=== PATIENT | female | born 1985 | race Caucasian/White ===

== ENCOUNTER 2016-06-30 10:30 | Inpatient (IN) | payer OTHER ==
[2016-06-30] MEDS: ELECTROLYTE-148 SOLN 1,000 ML IV SCH (10:45)
--- NOTE | 2016-06-30 11:01 | HP ---
Admitting History and Physical - Admission Chief Complaint: for repeat c section History of Present Illness: 30 yo with a priot cs and late registrant. States her care was in her counrty but never brought records. 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: No: Alzheimer's, CVA, Dementia, Migraine, Multiple Sclerosis, Peripheral Neuropathy, Parkinson's, Seizure, Syncope, TIA, Vertigo, Other Cardiovascular: No: AFIB, Aneurysm, Aortic Insufficiency, Aortic Stenosis, CAD, CHF, Deep Vein Thrombosis, HTN, Hyperlipdemia, LA, Mitral Insufficiency, Mitral Stenosis, Murmur, Pulmonary Hypertension, Other Pulmonary: No: Asthma, Bronchitis, Cancer, COPD, O2 Dependent, Pneumonia, Previously Intubated, Pulmonary Embolus, Pulmonary Fibrosis, Sleep Apnea, Other Gastrointestinal: No: Ascites, Cancer, Constipation, Crohn's Disease, Diverticulitis, Diverticulosis, Esophageal Varices, Gastritis, GERD, GI Bleed, Hemorrhoids, Hiatal Hernia, Inflamatory Bowel Disease, Irritable Bowel Disease, Pancreatitis, Peptic Ulcer Disease, Ulcerative Colitis, Other Hepatobiliary: No: Cirrhosis, Cholelithiasis, Cholecystitis, Choledocholithiasis , Hepatitis A, Hepatitis B, Hepatitis C, Other Renal/: No: Renal Failure, Renal Inusuff, BPH, Cancer, Hematuria, Hemodialysis , Neurogenic Bladder, Renal Calculi, UTI, Other Reproductive: No: Ectopic , Endometriosis, Fibroids, PID, Polycystic Ovary Syndrome, Postmenopausal, Other Heme/Onc: No: Anemia, B12 Deficiency, Bleeding Disorder, Cancer, Current Chemotherapy, Current Radiation Therapy, Hemochromatosis, Hypercoaguable State, Myeloproliferative Synd, Sickle Cell Disease, Sickle Cell Trait, Thrombocytopenia, Other Infectious Disease: No: AIDS, C-Diff, Herpes Zoster, HIV, MRSA, STD's, Tuberculosis, VREF, Other Psych: No: Addictions, Anxiety, Bipolar, Depression, Panic, Psychosis, Schizophrenia, Other Musculoskeletal: No: Bursitis, Chronic low back pain, Hemiparesis, Hemiplegia, Osteoarthritis, Paraplegia, Other Rheumatology: No: Fibromyalgia, Gout, Lupus, Rheumatoid Arthritis, Sarcoidosis, Vasculitis, Other ENT: No: Allergic Rhinitis, Sinusitis, Other Endocrine: No: [place]'s Disease, [place]'s Disease, Diabetes Insipidus, Diabetes Mellitus, Hyperparathyroidism, Hyperthyroidism, Hypothyroidism, Osteopenia, SIADH, Other Dermatology: No: Basal Cell, Cellulitis, Eczema, Melanoma, Psoriasis, Squamous Cell, Other - Past Surgical History Past Surgical History: No: None, AAA Repair, AICD, Amputation, Appendectomy, Arthrosocopy, AV Fistula/Graft, Bariatric Surgery, Breast Biopsy, Bypass, CABG, Carotid Endarterectomy, Cataract Removal, Cholecystectomy, Colectomy, Colonoscopy, Colostomy, Craniotomy, , Cystectomy, Hernia Repair, Hysterectomy, Ileal Conduit, Ileosotomy, Joint Replacement, Kidney Transplant, Laminectomy, Liver Transplant, Mastectomy, Nephrectomy, Oopherectomy, Orchiectomy, Permanent Pacemaker, Prostatectomy, Splenectomy, Stent, Thoracotomy , TURP, Tonsillectomy, Tubal Ligation, Upper Endoscopy, Valve Replacement, Vasectomy, Vein Stripping/Ligation - Advance Directives Advance Directives: No: Living Will, Health Care Proxy, DNR, Organ Donor, Tissue Donor - Alcohol/Substance Use History of Substance Use: denies: None, Cocaine, Heroin, Marijuana, Prescription , Tranquilizers - Social History Usual Living Arrangement: No: Alone, With Spouse, With Parent, With Significant Other, With Child, Assisted Living, Alf, Other Home Medications - Allergies Allergies/Adverse Reactions: Allergies Allergy/AdvReac Type Severity Reaction Status Date / Time No Known Allergies Allergy Verified 05/13/16 17:36 - Home Medications Home Medications: Ambulatory Orders Vit No.130/Iron/FA [ Vitamins] 1 each PO DAILY 05/13/16 Review of Systems - Review of Systems Constitutional: reports: No Symptoms Eyes: reports: No Symptoms HENT: reports: No Symptoms Neck: reports: No Symptoms Cardiovascular: reports: No Symptoms Respiratory: reports: No Symptoms Gastrointestinal: reports: No Symptoms Genitourinary: reports: No Symptoms Breasts: reports: No Symptoms Reported Musculoskeletal: reports: No Symptoms Integumentary: reports: No Symptoms Neurological: reports: No Symptoms Endocrine: reports: No Symptoms Hematology/Lymphatic: reports: No Symptoms Psychiatric: reports: No Symptoms Physical Examination Constitutional: Yes: Well Nourished Eyes: Yes: WNL HENT: Yes: WNL Neck: Yes: WNL Cardiovascular: Yes: WNL Respiratory: Yes: WNL Gastrointestinal: Yes: WNL ...Rectal Exam: Yes: WNL Renal/: Yes: WNL Breast(s): Yes: WNL Musculoskeletal: Yes: WNL Extremities: Yes: WNL Integumentary: Yes: WNL Neurological: Yes: WNL ...Motor Strength: WNL Assessment/Plan as above admit labs consents
[2016-06-30 11:34] VITALS: BMI 34.4
[2016-06-30 11:37] LABS: INR 1.05 (0.82-1.09); PROTHROMBIN TIME (PATIENT) 11.6 SEC (9.98-11.88)
[2016-06-30 11:39] LABS: ACTIVATED PTT 25.8 SECONDS (26.9-34.4)
[2016-06-30] MEDS ORDERED: CITRIC ACID/SODIUM CITRATE 30 ML UNIT-DOSE CUP PO ONE (12:16)
[2016-06-30] MEDS ORDERED: METHYLERGONOVINE MALEATE 0.2 MG/1 ML AMP IM PRN (12:16)
[2016-06-30] MEDS ORDERED: morphine SULFATE/Preservative Free 0.5 MG/ML (1cc Syringe) SPIN ONE (14:02)
[2016-06-30] MEDS: OXYTOCIN 20 UNITS in 0.9% NS 1,000 ML IV SCH ×2 (14:45→21:32)
[2016-06-30] MEDS ORDERED: ONDANSETRON 4 MG/2 ML VIAL IVPB PRN (15:03)
[2016-06-30 15:40] LABS: URINE MARIJUANA THC NEGATIVE ng/ml (CUTOFF=50)
[2016-06-30] MEDS: SIMETHICONE 80 MG TAB.CHEW (FP) PO PRN (23:58)
[2016-06-30] MEDS: IBUPROFEN 600 MG TABLET (FP) PO PRN (23:58)
[2016-06-30] MEDS: ACETAMINOPHEN 325 MG TABLET (FP) PO PRN (23:58)
[2016-07-01] MEDS: ACETAMINOPHEN 325 MG TABLET (FP) PO PRN ×4 (05:03→20:36)
[2016-07-01] MEDS: SIMETHICONE 80 MG TAB.CHEW (FP) PO PRN ×4 (05:03→20:37)
[2016-07-01] MEDS: IBUPROFEN 600 MG TABLET (FP) PO PRN ×4 (05:04→20:37)
--- NOTE | 2016-07-01 06:40 | PN ---
Post Progress Note - Subjective Subjective: no c/o pain, scale 4/10 Post Day: 1 Type of Delivery: Repeat C/S Vital Signs: Vital Signs Temperature 98.6 F 07/01/16 05:15 Pulse Rate 77 07/01/16 05:15 Respiratory Rate 18 07/01/16 05:15 Blood Pressure 103/53 07/01/16 05:15 O2 Sat by Pulse Oximetry (%) 100 06/30/16 15:30 Breast Exam: Yes: Soft, Other (BF ). No: Engorged Uterus: Yes: Fundus Firm, Fundus below umbilicus, Non-tender Incision: Yes: Dressing dry and intact. No: Redness, Oozing Abdomen/GI: Yes: Abdomen soft (bs active ), Tolerating PO (clear liquids ). No : Abdominal Distention, Tender, Passing flatus Lochia: Yes: Rubra Lochia, amount: Moderate Extremities: Yes: Calves non-tender, Edema Perineum: Yes: Intact Activity: Other (pt not oob yet . ) Other Findings, Remarks: Chávez in situ , draining i/o adequate Assessment/Plan stable. ct po care cbc today
[2016-07-01 07:32] LABS: BASOPHIL 0.2 % (0-2.0); EOSINOPHIL 0.5 % (0-4.5); MCHC 33.2 g/dl (32.0-36.0); MEAN CELL VOLUME 87.2 fl (80-96); MEAN PLT VOLUME 9.2 fl (7.5-11.1); NEUTROPHILS 76.6 % (42.8-82.8); PLATELET COUNT 161 K/MM3 (134-434); RDW 16.2 % (11.6-15.6); WHITE BLOOD COUNT 11.3 K/mm3 (4.0-10.0)
[2016-07-01] MEDS ORDERED: INFLUENZA VACCINE 45 MCG/0.5 ML (MDV 16-17) IM ONE (10:00)
[2016-07-01] MEDS ORDERED: VACCINE 60 MCG/0.5 ML (P/F DISP.SYRIN 16-17) IM ONE (10:00)
[2016-07-01] MEDS ORDERED: DIPHTH,PERTUSS(ACELL),TET 0.5 ML DISP.SYRIN IM ONE (10:00)
[2016-07-01] MEDS ORDERED: BISACODYL 10 MG SUPP.RECT RC PRN (12:17)
--- NOTE | 2016-07-01 14:25 | OP ---
DATE OF OPERATION: DATE OF DICTATION: 07/01/2016 HISTORY OF PRESENT ILLNESS: This is a multigravida for repeat section. POSTOPERATIVE DIAGNOSIS: This is a multigravida for repeat section. PROCEDURE: Repeat section. OPERATING SURGEON: Eduin Ontiveros MD ANODIC TREATER: LOLIAT Robledo COMPLICATIONS: None. ANESTHESIA: Spinal anesthesia. ESTIMATED BLOOD LOSS: 500 mL. DISPOSITION: To recovery room in stable alert condition. DESCRIPTION OF PROCEDURE: Patient was consented prior to entering the operating suite. Patient was put on the table in dorsal supine position, prepped and draped in the usual sterile fashion. A low Pfannenstiel incision was carried down to the level of the fascia. The fascia was then transected to the left and right of midline. At this time, the muscle was then entered sharply. The separation of the muscle was then performed. A bladder flap was not created due to prior adhesive tissue. Transverse incision down on the uterus was made, and a gush of fluid was seen. The infants head was then delivered atraumatically through the incision. The cord was then clamped and cut, and the infant was then handed off to the awaiting youth leader. At this time, the placenta had been removed. The inferior aspect of the uterus was cleaned with a semi-wet lap pad. The uterus was then closed in a double layer of Biosyn suture. The right and left paracolic gutters were inspected, and no gross bleeding identified. At this time, the single layer with the peritoneum and muscle was uniformly closed. The fascia was then closed in a single non-locking suture Biosyn suture. Skin rj were applied. The patient was sent to the recovery room in stable alert condition. EDUIN ONTIVEROS M.D. [id number]
--- NOTE | 2016-07-01 15:00 | PN ---
Progress Note, Physician Chief Complaint: Pt. ambulating and voiding, no REED. Pain controlled. - Current Medication List Current Medications: Active Medications Acetaminophen (Tylenol -) 650 mg PO Q4H PRN PRN Reason: FEVER OR PAIN Last Admin: 07/01/16 10:24 Dose: 650 mg Bisacodyl (Dulcolax Suppository -) 10 mg RC PRN PRN PRN Reason: CONSTIPATION Diphenhydramine HCl (Benadryl Injection -) 25 mg IVPUSH Q4H PRN PRN Reason: Pruritis Oxytocin/Sodium Chloride (Normal Saline+20 Units Oxytocin -) 1,000 mls @ 125 mls/hr IV ASDIR COUNT INCLUDES THE [facility] Last Admin: 06/30/16 21:32 Dose: 125 mls/hr Parenteral Electrolytes (Plasma-Lyte 148 -) 1,000 mls @ 125 mls/hr IV ASDIR COUNT INCLUDES THE [facility] Last Admin: 06/30/16 10:45 Dose: 125 mls/hr Ibuprofen (Motrin -) 600 mg PO Q4H PRN PRN Reason: PAIN Last Admin: 07/01/16 10:23 Dose: 600 mg Methylergonovine Maleate (Methergine Injection -) 0.2 mg IM Q4H PRN PRN Reason: Excessive Bleeding (L&D) Simethicone (Mylicon -) 80 mg PO Q4H PRN PRN Reason: GAS Last Admin: 07/01/16 10:24 Dose: 80 mg - Objective Vital Signs: Vital Signs Temperature 97.5 F L 07/01/16 13:57 Pulse Rate 91 H 07/01/16 13:57 Respiratory Rate 18 07/01/16 13:57 Blood Pressure 91/57 07/01/16 13:57 O2 Sat by Pulse Oximetry (%) 100 06/30/16 15:30 Constitutional: Yes: Well Nourished, No Distress, Calm Musculoskeletal: Yes: WNL Neurological: Yes: WNL, Alert, Oriented ...Motor Strength: WNL Labs: CBC, BMP 07/01/16 05:37 INR, PTT INR 1.05 (0.82-1.09) 06/30/16 10:50 Assessment/Plan POD#1 s/p under spinal. Doing well. D/C from anesthesia care.
[2016-07-02] MEDS: ACETAMINOPHEN 325 MG TABLET (FP) PO PRN ×2 (00:56→14:07)
[2016-07-02] MEDS: SIMETHICONE 80 MG TAB.CHEW (FP) PO PRN ×4 (00:56→21:00)
[2016-07-02] MEDS: IBUPROFEN 600 MG TABLET (FP) PO PRN ×3 (00:56→21:01)
--- NOTE | 2016-07-02 06:09 | PN ---
Post Progress Note Post Day: 2 Type of Delivery: Repeat C/S Vital Signs: Vital Signs Temperature 97.7 F 07/01/16 22:00 Pulse Rate 100 H 07/01/16 22:00 Respiratory Rate 18 07/01/16 22:00 Blood Pressure 118/71 07/01/16 22:00 O2 Sat by Pulse Oximetry (%) 100 06/30/16 15:30 Uterus: Yes: Fundus Firm Incision: Yes: Dressing dry and intact Abdomen/GI: Yes: Abdomen soft Lochia: Yes: Rubra Lochia, amount: Small Extremities: Yes: Calves non-tender Perineum: Yes: Intact Activity: Ambulating - Labs Labs: CBC WBC 11.3 K/mm3 (4.0-10.0) H 07/01/16 05:37 RBC 3.42 M/mm3 (3.60-5.2) L D 07/01/16 05:37 Hgb 9.9 GM/dL (10.7-15.3) L D 07/01/16 05:37 Hct 29.8 % (32.4-45.2) L D 07/01/16 05:37 MCV 87.2 fl (80-96) 07/01/16 05:37 MCHC 33.2 g/dl (32.0-36.0) 07/01/16 05:37 RDW 16.2 % (11.6-15.6) H 07/01/16 05:37 Plt Count 161 K/MM3 (134-434) D 07/01/16 05:37 MPV 9.2 fl (7.5-11.1) 07/01/16 05:37 Neutrophils % 76.6 % (42.8-82.8) 07/01/16 05:37 Lymphocytes % 17.9 % (8-40) 07/01/16 05:37 Monocytes % 4.8 % (3.8-10.2) 07/01/16 05:37 Eosinophils % 0.5 % (0-4.5) 07/01/16 05:37 Basophils % 0.2 % (0-2.0) 07/01/16 05:37 Assessment/Plan oob check labs pain meds
[2016-07-02] MEDS ORDERED: oxyCODONE HCL 5 MG TABLET ONE (07:25)
[2016-07-02] MEDS ORDERED: oxyCODONE HCL 5 MG TABLET PO PRN (08:16)
[2016-07-02] MEDS: OXYTOCIN 20 UNITS in 0.9% NS 1,000 ML IV SCH (15:51)
[2016-07-02] MEDS: ELECTROLYTE-148 SOLN 1,000 ML IV SCH (15:52)
[2016-07-02] MEDS: oxyCODONE HCL 5 MG TABLET PO PRN (21:01)
[2016-07-03] MEDS: SIMETHICONE 80 MG TAB.CHEW (FP) PO PRN ×3 (03:01→18:46)
[2016-07-03] MEDS: ACETAMINOPHEN 325 MG TABLET (FP) PO PRN ×3 (03:01→18:43)
[2016-07-03] MEDS: IBUPROFEN 600 MG TABLET (FP) PO PRN ×2 (03:02→22:47)
[2016-07-03 07:31] LABS: BASOPHIL 0.3 % (0-2.0); EOSINOPHIL 2.4 % (0-4.5); MCH 28.6 pg (25.7-33.7); MCHC 32.7 g/dl (32.0-36.0); MEAN CELL VOLUME 87.3 fl (80-96); MEAN PLT VOLUME 8.8 fl (7.5-11.1); NEUTROPHILS 76.6 % (42.8-82.8); PLATELET COUNT 208 K/MM3 (134-434); RDW 16.4 % (11.6-15.6); WHITE BLOOD COUNT 11.1 K/mm3 (4.0-10.0)
--- NOTE | 2016-07-03 07:57 | PN ---
Progress Note (short form) - Note Progress Note: pod 3 c/o incisional pain, Last Vital Signs Temp Pulse Resp BP Pulse Ox 97.7 F 98 H 18 120/73 100 07/02/16 21:26 07/02/16 21:26 07/02/16 21:26 07/02/16 21:26 06/30/16 15:30 abdomen soft, no distension, no cva incision dry, clean no excess vaginal bleeding, no calf tenderness plan ambulate, pain management, cbc today
[2016-07-03] MEDS: oxyCODONE HCL 5 MG TABLET PO PRN ×3 (12:24→22:47)
[2016-07-04] MEDS: ACETAMINOPHEN 325 MG TABLET (FP) PO PRN (09:53)
[2016-07-04] MEDS: SIMETHICONE 80 MG TAB.CHEW (FP) PO PRN (09:53)
[2016-07-04] MEDS: IBUPROFEN 600 MG TABLET (FP) PO PRN (09:54)
[2016-07-04 13:33] VITALS: BP 124/59; PULSE 90; TEMP 97.8
--- NOTE | 2016-07-06 13:48 | PATH ---
Surgical Pathology Report Patient Name: ANDREA ANN [facility]. Rec. 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 Specimen(s) Received PLACENTA Clinical History 39 weeks gestation scheduled repeat Final Diagnosis PLACENTA, DELIVERY: FOCALLY DISRUPTED THIRD TRIMESTER PLACENTA WITH THREE VESSEL UMBILICAL CORD AND UNREMARKABLE PLACENTAL MEMBRANES. Electronically Signed Jatin Woodruff M.D. Gross Description The specimen is received fresh labeled placenta and is a 517 gram, 18.0 x 17.0 x 2.3 cm. placenta with attached membranes and umbilical cord. The attached membranes are izquierdo, thick, cloudy and insert marginally. The umbilical cord measures 30 cm. in length and averages 1.2 cm. in diameter. The cord inserts eccentrically, 4 cm. to the nearest margin. No true knots or strictures are identified. Cut surface of the umbilical cord reveals 3 vessels. The surface is baca-blue with minimal fibrin deposition and appropriate caliber vessels. The maternal surface is red-brown with focal defects. Sectioning reveals red-brown, spongy parenchyma. No lesions are identified. Religious Assistant sections are submitted in three cassettes as follows: 1- membrane rolls and umbilical cord; 2-3- full thickness sections of placenta. 07/03/201607/03/2016
--- NOTE | 2016-10-27 13:32 | DS ---
DATE OF ADMISSION: 06/30/2016 DATE OF DISCHARGE: 07/04/2016 HOSPITAL COURSE: Patient was seen throughout her hospital course and noted to be doing well. The patient was subsequently discharged home to be followed up in the office. EDUIN AARON M.D. [id number]/[id number]
== END 2016-07-04 13:40 | disposition home or self-care (01) | DRG 540 ==
LOC: JLDR 10:30 → J3W 15:43
PROVIDERS: ADMIT Obstetrics & Gynecology; ATTEND Obstetrics & Gynecology
PROC: 10D00Z1 Extraction of Products of Conception, Low, Open Approach (ICD-10-PCS; principal; 2016-07-01)
DX: O34.211 Maternal care for low transverse scar from previous cesarean delivery (principal); Z3A.39 39 weeks gestation of pregnancy; Z37.0 Single live birth
CPT/HCPCS: 36415; 80307; 85025; 85610; 85730; 86593; 88307-TC; 90661; 90715; G0008